=== PATIENT | male | born 1980 | race Caucasian/White ===

== ENCOUNTER 2017-10-24 01:08 | Inpatient (IN) ==
[2017-10-24 01:40] LABS: Basophils % 0.5 %; Eosinophils # 0.1 K/mcL (0.0-0.6); Eosinophils % 1.2 %; Hematocrit 49.1 % (37.5-50.1); Hemoglobin 17.5 g/dL (12.9-16.9); Immature Granulocytes % 0.3 % (0-4); Lymphocytes # 1.9 K/mcL (0.6-4.6); Lymphocytes % 31.2 %; Mean Corpuscular HGB Conc 35.6 g/dL (31.6-35.5); Mean Corpuscular Hemoglobin 31.8 pg (28.0-33.3); Mean Corpuscular Volume 89.3 fL (83.0-100.0); Mean Platelet Volume 8.8 fL (9.4-12.4); Monocytes # 0.5 K/mcL (0.0-1.3); Monocytes % 8.3 %; Neutrophils # 3.6 K/mcL (1.6-8.9); Platelet Count 234 K/mcL (140-400); Red Cell Distribution Width 13.1 % (11.5-14.5); Segmented Neutrophils % 58.5 %
[2017-10-24] MEDS ORDERED: Ipratropium/Albuterol Neb 3 ML IH ONE (01:41)
[2017-10-24] MEDS ORDERED: Dexamethasone 10 MG/ML VIAL IM ONE (01:42)
[2017-10-24] MEDS ORDERED: *HR* LORazepam 1 MG TABLET PO ONE (01:44)
--- NOTE | 2017-10-24 01:49 | Emergency Department Note ---
Disposition Clinical Impression: Acute psychosis, Suicidal ideation Disposition: Admitted As Inpatient Condition: Fair Forms: ED Satisfaction Letter Psych HPI - General Chief Complaint: ED Psychiatric Symptoms Stated Complaint: si/hi Time Seen by Provider: 10/24/17 01:41 Source: patient Mode of arrival: private vehicle Limitations: no limitations Nursing Notes Reviewed: Yes Vital Signs Reviewed: Yes - History of Present Illness Pt complaint: suicidal ideation, anxiety Onset (ago): day(s) Duration: constant, getting worse History of similar episodes: Yes Improves with: medication Worsens with: none Context: recent drug abuse (meth yesterday), not taking psychiatric medications , new medication(s) (Prednisone x a couple of days - for wheezing and rash) Alleged intoxication: No Associated Psychiatric Symptoms: suicidal ideation, homicidal ideation, racing thoughts, anxiety Associated symptoms: Reports: denies other symptoms Traumatic symptoms: denies traumatic injury Treatments prior to arrival: none Self harm or harm to others: admits thoughts of self harm, denies having a plan - Related Data Home Medications Medication Instructions Recorded Confirmed Buspirone HCl [Buspar] 10 mg PO TID 10/24/17 10/24/17 Sertraline [Zoloft] 25 mg PO DAILY 10/24/17 10/24/17 chlorproMAZINE [Thorazine] 10 mg PO TID 10/24/17 10/24/17 Previous Rx's Medication Instructions Recorded Amoxicillin 875 mg PO BID #20 tablet 04/15/17 GuaiFENesin/Dextromethorphan 5 ml PO Q6HR PRN #120 syrup 04/15/17 [Robitussin/DM] Loratadine/Pseudophed (12 HR) 1 each PO BID #20 tab.er.12h 04/15/17 [Claritin D (12HR)] Cyclobenzaprine [Flexeril] 10 mg PO TID PRN #20 tablet 10/21/17 predniSONE [PredniSONE] 40 mg PO DAILY 5 Days tablet 10/21/17 Allergies Allergy/AdvReac Type Severity Reaction Status Date / Time No Known Allergies Allergy Verified 10/21/17 10:19 All systems ED: reviewed and negative except as stated. Review of Systems: As Per HPI Constitutional: Denies: fever, chills, weakness, weight change, night sweats Eyes: Denies: vision change ENT ED: Reports: congestion. Denies: throat pain, dysphagia Cardiovascular: Denies: chest pain, palpitations, dyspnea on exertion, orthopnea , edema, syncope Respiratory: Reports: cough (x 1.5 weeks), wheezes. Denies: dyspnea, hemoptysis , stridor, sputum production Gastrointestinal: Denies: abdominal pain, nausea, vomiting Integumentary: Reports: rash (x 1 week, from exposure to fiberglass, seen here for it. Rx Prednisone) Neurological: Denies: headache, weakness, confusion, vertigo Psychiatric: Reports: as per HPI, anxiety, suicidal thoughts, homicidal thoughts. Denies: auditory hallucinations, visual hallucinations Hematological/Lymphatic: Denies: easy bleeding, easy bruising Past Medical History - Past Medical History Attestation: Yes The following information was validated with the patient. Source: patient Medical history: Reports: asthma, hepatitis Surgical history: Reports: non-contributory Psychiatric history: Reports: anxiety, bipolar, depression, prior suicide attempt, previous psychiatric hospitalization - Social History Smoking Status: Current every day smoker Smokeless Tobacco Status: No Alcohol use: Reports: occasionally Drug use: Reports: marijuana, methamphetamine Physical Exam - General Limitations: no limitations General appearance: alert, anxious - Head Head exam: atraumatic, normocephalic, normal inspection - Eye Eye exam: Present: normal appearance, PERRL. Absent: scleral icterus, conjunctival injection, periorbital swelling - ENT ENT exam: normal oropharynx, mucous membranes moist - Neck Neck exam: Present: normal inspection, full ROM, trachea midline. Absent: meningismus - Chest Chest inspection: Present: normal inspection - Respiratory Respiratory exam: Present: wheezes. Absent: normal lung sounds bilaterally, respiratory distress, stridor, accessory muscle use, prolonged expiratory phase - Expanded Respiratory Exam Location: wheezes: Left, Right, Upper, Lower - Cardiovascular Cardiovascular exam: Present: regular rate, normal rhythm, normal heart sounds - Extremities Exam Extremities exam: Present: full ROM, normal capillary refill. Absent: joint swelling - Neurological Exam Neurological exam: Present: alert, oriented X3, CN II-XII intact, normal gait - Psychiatric Psychiatric exam: Present: agitated, anxious, manic, homicidal ideation, suicidal ideation - Skin Skin exam: Present: warm, dry, intact, normal color, rash - Expanded Skin Exam Type of lesion: Present: rash Distribution: generalized Description: Present: erythematous, papular, confluent, other (blanching, excoriated). Absent: tenderness Course Course Narrative: Patient presents from home for evaluation of "suicidal because mind is racing and I don't want to hurt someone else." He has had problems like this in the past. He used to take psychiatric medications but has been off of them "for a while". He tried using some meth yesterday because when he begins to feels anxious, "that usually helps set the mind right". This time it did not work. He began to feel like he might hurt someone or himself so he decided to come here for help. He is polite and cooperative with the exam. Vitals are normal; including O2 sat, but he has diffuse wheezing - insp and exp. Rash is still present - also diffuse. Appears improved compared to a few days ago when I saw him. Labs have been ordered. Will order Duonebs and decadron as well. Patient is requesting "something to help with nerves and anxiety". Wheezing improved. O2sat is 100% on room air. Ativan "did not help", per patient. Haldol ordered. Labs are essentially normal except for drug screen which is positive for several substances. Patient has had a cough for about a week or so and has hx of asthma. He lost his inhaler. Sats are good and wheezing better after nebs. Cough is dry and infrquent. No fever, malaise or pain, I do not suspect pneumonia. Thus, he is medically cleared for psychiatric evaluation. [facility] has been contacted already by the nurse. Patient was evaluated By [facility] AMPARO Baker. She has consulted with the psychiatrist. Patient will be admitted to . Case discussed with Dr. Moreno. He has had face to face time with the patient and agrees with the assessment and plan. Vital Signs Temperature 97.7 F 10/24/17 01:13 Pulse Rate 81 10/24/17 01:13 Respiratory Rate 14 10/24/17 01:13 Blood Pressure 119/82 10/24/17 01:13 O2 Sat by Pulse Oximetry 96 10/24/17 01:13 Temperature 97.7 F 10/24/17 01:13 Pulse Rate 81 10/24/17 01:13 Respiratory Rate 16 10/24/17 01:45 Blood Pressure 119/82 10/24/17 01:13 O2 Sat by Pulse Oximetry 100 10/24/17 01:45 Oxygen Delivery Oxygen Delivery Room Air Psych - Lab Data Lab results reviewed: Yes I reviewed the patient's lab results. Lab results narrative: Laboratory Last Values WBC 6.1 K/mcL (4.3-11.1) 10/24/17 01:25 RBC 5.50 M/mcL (4.19-5.50) 10/24/17 01:25 Hgb 17.5 g/dL (12.9-16.9) H 10/24/17 01:25 Hct 49.1 % (37.5-50.1) 10/24/17 01:25 MCV 89.3 fL (83.0-100.0) 10/24/17 01:25 MCH 31.8 pg (28.0-33.3) 10/24/17 01:25 MCHC 35.6 g/dL (31.6-35.5) H 10/24/17 01:25 RDW 13.1 % (11.5-14.5) 10/24/17 01:25 Plt Count 234 K/mcL (140-400) 10/24/17 01:25 MPV 8.8 fL (9.4-12.4) L 10/24/17 01:25 Immature Gran % 0.3 % (0-4) 10/24/17 01:25 Seg Neutrophils % 58.5 % 10/24/17 01:25 Lymphocytes % 31.2 % 10/24/17 01:25 Monocytes % 8.3 % 10/24/17 01:25 Eosinophils % 1.2 % 10/24/17 01:25 Basophils % 0.5 % 10/24/17 01:25 Neutrophils # 3.6 K/mcL (1.6-8.9) 10/24/17 01:25 Lymphocytes # 1.9 K/mcL (0.6-4.6) 10/24/17 01:25 Monocytes # 0.5 K/mcL (0.0-1.3) 10/24/17 01:25 Eosinophils # 0.1 K/mcL (0.0-0.6) 10/24/17 01:25 Basophils # 0.0 K/mcL (0.0-0.2) 10/24/17 01:25 Sodium 133 mEq/L (136-145) L 10/24/17 01:25 Potassium 4.2 mEq/L (3.5-5.1) 10/24/17 01:25 Chloride 97 mEq/L (98-107) L 10/24/17 01:25 Carbon Dioxide 28 mEq/L (23-29) 10/24/17 01:25 BUN 14 mg/dL (6-20) 10/24/17 01:25 Creatinine 1.06 mg/dL (0.70-1.30) 10/24/17 01:25 Est GFR ( Amer) > 60 (> 60) 10/24/17 01:25 Est GFR (Non-Af Amer) > 60 (> 60) 10/24/17 01:25 BUN/Creatinine Ratio 13 (6-26) 10/24/17 01:25 Glucose 108 mg/dL (70-105) H 10/24/17 01:25 Calculated Osmolality 277 (280-300) L 10/24/17 01:25 Calcium 9.3 mg/dL (8.6-10.3) 10/24/17 01:25 Urine Color Yellow (Yellow) 10/24/17 02:19 Urine Clarity Clear (Clear) 10/24/17 02:19 Urine pH 6.0 pH Units (5.0-8.0) 10/24/17 02:19 Ur Specific [place] 1.021 (1.010-1.025) 10/24/17 02:19 Urine Protein Negative mg/dL (Neg-Trace) 10/24/17 02:19 Urine Glucose (UA) Normal mg/dL (Normal) 10/24/17 02:19 Urine Ketones Negative mg/dL (Negative) 10/24/17 02:19 Urine Blood Negative (Negative) 10/24/17 02:19 Urine Nitrite Negative (Negative) 10/24/17 02:19 Urine Bilirubin Negative (Negative) 10/24/17 02:19 Urine Urobilinogen Normal mg/dL (Normal) 10/24/17 02:19 Ur Leukocyte Esterase Negative (Negative) 10/24/17 02:19 Salicylates < 2.5 mg/dL (15.0-30.0) L 10/24/17 01:25 Urine Opiates Screen Negative ng/mL (Xqomiu=986) 10/24/17 02:19 Acetaminophen < 10 mcg/mL (10-20) L 10/24/17 01:25 Ur Barbiturates Screen Negative ng/mL (Otkvxs=983) 10/24/17 02:19 Ur Phencyclidine Scrn Negative ng/mL (Cutoff=25) 10/24/17 02:19 Ur Amphetamines Screen Positive ng/mL (Vjfflu=4909) H 10/24/17 02:19 U Benzodiazepines Scrn Negative ng/mL (Ujpyyt=926) 10/24/17 02:19 Urine Cocaine Screen Positive ng/mL (Cutoff= 300) H 10/24/17 02:19 U Marijuana (THC) Screen Positive ng/mL (Cutoff = 50) H 10/24/17 02:19 Ethyl Alcohol < 10 mg/dL (Less than 10) 10/24/17 01:25 Result diagrams: 10/24/17 01:25 10/24/17 01:25 Lab Results 10/24/17 10/24/17 10/24/17 Range/Units 01:25 01:25 02:19 WBC 6.1 (4.3-11.1) K/mcL RBC 5.50 (4.19-5.50) M/mcL Hgb 17.5 H (12.9-16.9) g/dL Hct 49.1 (37.5-50.1) % MCV 89.3 (83.0-100.0) fL MCH 31.8 (28.0-33.3) pg MCHC 35.6 H (31.6-35.5) g/dL RDW 13.1 (11.5-14.5) % Plt Count 234 (140-400) K/mcL MPV 8.8 L (9.4-12.4) fL Immature Gran % 0.3 (0-4) % Seg Neutrophils % 58.5 % Lymphocytes % 31.2 % Monocytes % 8.3 % Eosinophils % 1.2 % Basophils % 0.5 % Neutrophils # 3.6 (1.6-8.9) K/mcL Lymphocytes # 1.9 (0.6-4.6) K/mcL Monocytes # 0.5 (0.0-1.3) K/mcL Eosinophils # 0.1 (0.0-0.6) K/mcL Basophils # 0.0 (0.0-0.2) K/mcL Sodium 133 L (136-145) mEq/L Potassium 4.2 (3.5-5.1) mEq/L Chloride 97 L (98-107) mEq/L Carbon Dioxide 28 (23-29) mEq/L BUN 14 (6-20) mg/dL Creatinine 1.06 (0.70-1.30) mg/dL Est GFR ( Amer) > 60 (> 60) Est GFR (Non-Af Amer) > 60 (> 60) BUN/Creatinine Ratio 13 (6-26) Glucose 108 H (70-105) mg/dL Calculated Osmolality 277 L (280-300) Calcium 9.3 (8.6-10.3) mg/dL Urine Color (Yellow) Urine Clarity (Clear) Urine pH (5.0-8.0) pH Units Ur Specific [place] (1.010-1.025) Urine Protein (Neg-Trace) mg/dL Urine Glucose (UA) (Normal) mg/dL Urine Ketones (Negative) mg/dL Urine Blood (Negative) Urine Nitrite (Negative) Urine Bilirubin (Negative) Urine Urobilinogen (Normal) mg/dL Ur Leukocyte Esterase (Negative) Salicylates < 2.5 L (15.0-30.0) mg/dL Urine Opiates Screen Negative (Dauvyy=791) ng/mL Acetaminophen < 10 L (10-20) mcg/mL Ur Barbiturates Screen Negative (Ckkwhp=089) ng/mL Ur Phencyclidine Scrn Negative (Cutoff=25) ng/mL Ur Amphetamines Screen Positive H (Ppgtdu=2279) ng/mL U Benzodiazepines Scrn Negative (Vxmyow=444) ng/mL Urine Cocaine Screen Positive H (Cutoff= 300) ng/mL U Marijuana (THC) Screen Positive H (Cutoff = 50) ng/mL Ethyl Alcohol < 10 (Less than 10) mg/dL 10/24/17 Range/Units 02:19 WBC (4.3-11.1) K/mcL RBC (4.19-5.50) M/mcL Hgb (12.9-16.9) g/dL Hct (37.5-50.1) % MCV (83.0-100.0) fL MCH (28.0-33.3) pg MCHC (31.6-35.5) g/dL RDW (11.5-14.5) % Plt Count (140-400) K/mcL MPV (9.4-12.4) fL Immature Gran % (0-4) % Seg Neutrophils % % Lymphocytes % % Monocytes % % Eosinophils % % Basophils % % Neutrophils # (1.6-8.9) K/mcL Lymphocytes # (0.6-4.6) K/mcL Monocytes # (0.0-1.3) K/mcL Eosinophils # (0.0-0.6) K/mcL Basophils # (0.0-0.2) K/mcL Sodium (136-145) mEq/L Potassium (3.5-5.1) mEq/L Chloride (98-107) mEq/L Carbon Dioxide (23-29) mEq/L BUN (6-20) mg/dL Creatinine (0.70-1.30) mg/dL Est GFR ( Amer) (> 60) Est GFR (Non-Af Amer) (> 60) BUN/Creatinine Ratio (6-26) Glucose (70-105) mg/dL Calculated Osmolality (280-300) Calcium (8.6-10.3) mg/dL Urine Color Yellow (Yellow) Urine Clarity Clear (Clear) Urine pH 6.0 (5.0-8.0) pH Units Ur Specific [place] 1.021 (1.010-1.025) Urine Protein Negative (Neg-Trace) mg/dL Urine Glucose (UA) Normal (Normal) mg/dL Urine Ketones Negative (Negative) mg/dL Urine Blood Negative (Negative) Urine Nitrite Negative (Negative) Urine Bilirubin Negative (Negative) Urine Urobilinogen Normal (Normal) mg/dL Ur Leukocyte Esterase Negative (Negative) Salicylates (15.0-30.0) mg/dL Urine Opiates Screen (Mqvktv=015) ng/mL Acetaminophen (10-20) mcg/mL Ur Barbiturates Screen (Vuyzmw=903) ng/mL Ur Phencyclidine Scrn (Cutoff=25) ng/mL Ur Amphetamines Screen (Tjcjlx=7205) ng/mL U Benzodiazepines Scrn (Sseipn=242) ng/mL Urine Cocaine Screen (Cutoff= 300) ng/mL U Marijuana (THC) Screen (Cutoff = 50) ng/mL Ethyl Alcohol (Less than 10) mg/dL Psychiatric Medical Clearance - Medical Clearance Checklist Does the patient have a NEW psychiatric condition?: No Any abnormalities indicating possible medical illness?: No Any history of medical issues?: Yes Medical History: Closed head injury (Acute) Cervical muscle strain (Acute) Contact dermatitis (Acute) Bronchitis (Acute) Depression (Inactive) Sinusitis (Inactive) Suicidal ideation (Inactive) Tobacco use (Inactive) Upper respiratory infection (Inactive) No Social History Section defined Any abnormal vital signs prior to transfer?: No Current Vitals: Last Vital Signs Temp 97.7 F 10/24/17 01:13 Pulse 81 10/24/17 01:13 Resp 16 10/24/17 01:45 BP 119/82 10/24/17 01:13 Pulse Ox 100 10/24/17 01:45 Is the patient intoxicated or cognitively impaired?: No Psychiatric Lab Panel: Drug Levels and Toxicity 10/24/17 10/24/17 01:25 02:19 Urine Opiates Screen Negative Acetaminophen < 10 L Ur Barbiturates Screen Negative Ur Phencyclidine Scrn Negative Ur Amphetamines Screen Positive H U Benzodiazepines Scrn Negative Urine Cocaine Screen Positive H U Marijuana (THC) Screen Positive H Ethyl Alcohol < 10 Any abnormalities on the physical exam?: Yes (Rash, wheezing - improved) Any abnormal labs?: Yes Abnormal Labs: Abnormal lab results Hgb 17.5 g/dL (12.9-16.9) H 10/24/17 01:25 MCHC 35.6 g/dL (31.6-35.5) H 10/24/17 01:25 MPV 8.8 fL (9.4-12.4) L 10/24/17 01:25 Sodium 133 mEq/L (136-145) L 10/24/17 01:25 Chloride 97 mEq/L (98-107) L 10/24/17 01:25 Glucose 108 mg/dL (70-105) H 10/24/17 01:25 Calculated Osmolality 277 (280-300) L 10/24/17 01:25 Salicylates < 2.5 mg/dL (15.0-30.0) L 10/24/17 01:25 Acetaminophen < 10 mcg/mL (10-20) L 10/24/17 01:25 Ur Amphetamines Screen Positive ng/mL (Foqnik=6538) H 10/24/17 02:19 Urine Cocaine Screen Positive ng/mL (Cutoff= 300) H 10/24/17 02:19 U Marijuana (THC) Screen Positive ng/mL (Cutoff = 50) H 10/24/17 02:19 If abnormals exist; proposed resolution:: time Does the patient require durable medical equiptment?: No Is the patient ambulatory?: Yes Is the patient a fall risk?: No Has the patient been medically cleared?: Yes Any acute medical condition require Tx prior to transfer?: Yes (fani Smallwood) Statement of Medical Clearance: I have evaluated the patient, reviewed diagnostic information, and certify that the patient's medical condition is sufficiently stable that transfer to the psychiatric unit does not pose a significant risk of deterioration.
[2017-10-24 01:57] LABS: Acetaminophen < 10 mcg/mL (10-20)
[2017-10-24 01:59] LABS: BUN/Creatinine Ratio 13 (6-26); Blood Urea Nitrogen 14 mg/dL (6-20); Calcium 9.3 mg/dL (8.6-10.3); Carbon Dioxide 28 mEq/L (23-29); Chloride 97 mEq/L (98-107); Ethanol < 10 mg/dL (Less than 10); Glucose 108 mg/dL (70-105); Osmolality,Calculated 277 (280-300); Potassium 4.2 mEq/L (3.5-5.1); Salicylate < 2.5 mg/dL (15.0-30.0); Sodium 133 mEq/L (136-145); eGFR For African Americans > 60 (> 60); eGFR For Non-African Americans > 60 (> 60)
[2017-10-24 02:26] LABS: Bilirubin,Urine Negative (Negative); Blood,Urine Negative (Negative); Clarity,Urine Clear (Clear); Color,Urine Yellow (Yellow); Glucose,Urine (UA) Normal (Normal); Ketones,Urine Negative (Negative); Leukocyte Esterase,Urine Negative (Negative); Nitrite,Urine Negative (Negative); Protein,Urine Negative (Neg-Trace); Specific Gravity,Urine 1.021 (1.010-1.025); Urobilinogen,Urine Normal (Normal)
[2017-10-24] MEDS ORDERED: Haloperidol Lactate 5 MG/ML VIAL IM ONE (02:37)
[2017-10-24 02:50] LABS: Amphetamine Screen,Urine Positive ng/mL (Cutoff=1000); Barbiturate Screen,Urine Negative ng/mL (Cutoff=200); Benzodiazepines Screen,Urine Negative ng/mL (Cutoff=200); Cannabinoid Screen,Urine Positive ng/mL (Cutoff = 50); Cocaine Screen,Urine Positive ng/mL (Cutoff= 300); Opiate Screen,Urine Negative ng/mL (Cutoff=300); Phencyclidine Screen,Urine Negative ng/mL (Cutoff=25)
--- NOTE | 2017-10-24 04:15 | Emergency Department Note ---
Disposition Clinical Impression: Acute psychosis, Suicidal ideation Disposition: Admitted As Inpatient Condition: Fair General Adult HPI - General Chief complaint: ED Psychiatric Symptoms Stated complaint: si/hi Time Seen by Provider: 10/24/17 01:41 Source: patient Mode of arrival: private vehicle Limitations: no limitations Nursing Notes Reviewed: Yes Vital Signs Reviewed: Yes - History of Present Illness Pain Scale: 0 - Related Data Home Medications Medication Instructions Recorded Confirmed Buspirone HCl [Buspar] 10 mg PO TID 10/24/17 10/24/17 Sertraline [Zoloft] 25 mg PO DAILY 10/24/17 10/24/17 chlorproMAZINE [Thorazine] 10 mg PO TID 10/24/17 10/24/17 Previous Rx's Medication Instructions Recorded Amoxicillin 875 mg PO BID #20 tablet 04/15/17 GuaiFENesin/Dextromethorphan 5 ml PO Q6HR PRN #120 syrup 04/15/17 [Robitussin/DM] Loratadine/Pseudophed (12 HR) 1 each PO BID #20 tab.er.12h 04/15/17 [Claritin D (12HR)] Cyclobenzaprine [Flexeril] 10 mg PO TID PRN #20 tablet 10/21/17 predniSONE [PredniSONE] 40 mg PO DAILY 5 Days tablet 10/21/17 Allergies Allergy/AdvReac Type Severity Reaction Status Date / Time No Known Allergies Allergy Verified 10/21/17 10:19 Constitutional: Denies: fever, chills, weakness, weight change, night sweats Eyes: Denies: vision change ENT ED: Reports: congestion. Denies: throat pain, dysphagia Cardiovascular: Denies: chest pain, palpitations, dyspnea on exertion, orthopnea , edema, syncope Respiratory: Reports: cough (x 1.5 weeks), wheezes. Denies: dyspnea, hemoptysis , stridor, sputum production Gastrointestinal: Denies: abdominal pain, nausea, vomiting Integumentary: Reports: rash (x 1 week, from exposure to fiberglass, seen here for it. Rx Prednisone) Neurological: Denies: headache, weakness, confusion, vertigo Psychiatric: Reports: as per HPI, anxiety, suicidal thoughts, homicidal thoughts. Denies: auditory hallucinations, visual hallucinations Hematological/Lymphatic: Denies: easy bleeding, easy bruising Past Medical History - Past Medical History Medical history: Reports: asthma, hepatitis Surgical history: Reports: non-contributory Psychiatric history: Reports: anxiety, bipolar, depression, prior suicide attempt, previous psychiatric hospitalization - Social History Smoking Status: Current every day smoker Smokeless Tobacco Status: No Alcohol use: Reports: occasionally Drug use: Reports: marijuana, methamphetamine Physical Exam - General Limitations: no limitations General appearance: alert, anxious Course Vital Signs Temperature 97.7 F 10/24/17 01:13 Pulse Rate 81 10/24/17 01:13 Respiratory Rate 14 10/24/17 01:13 Blood Pressure 119/82 10/24/17 01:13 O2 Sat by Pulse Oximetry 96 10/24/17 01:13 Temperature 97.7 F 10/24/17 01:13 Pulse Rate 81 10/24/17 01:13 Respiratory Rate 16 10/24/17 01:45 Blood Pressure 119/82 10/24/17 01:13 O2 Sat by Pulse Oximetry 100 10/24/17 01:45 Oxygen Delivery Oxygen Delivery Room Air Medical Decision Making - Lab Data Result diagrams: 10/24/17 01:25 10/24/17 01:25 Lab Results 10/24/17 10/24/17 10/24/17 Range/Units 01:25 01:25 02:19 WBC 6.1 (4.3-11.1) K/mcL RBC 5.50 (4.19-5.50) M/mcL Hgb 17.5 H (12.9-16.9) g/dL Hct 49.1 (37.5-50.1) % MCV 89.3 (83.0-100.0) fL MCH 31.8 (28.0-33.3) pg MCHC 35.6 H (31.6-35.5) g/dL RDW 13.1 (11.5-14.5) % Plt Count 234 (140-400) K/mcL MPV 8.8 L (9.4-12.4) fL Immature Gran % 0.3 (0-4) % Seg Neutrophils % 58.5 % Lymphocytes % 31.2 % Monocytes % 8.3 % Eosinophils % 1.2 % Basophils % 0.5 % Neutrophils # 3.6 (1.6-8.9) K/mcL Lymphocytes # 1.9 (0.6-4.6) K/mcL Monocytes # 0.5 (0.0-1.3) K/mcL Eosinophils # 0.1 (0.0-0.6) K/mcL Basophils # 0.0 (0.0-0.2) K/mcL Sodium 133 L (136-145) mEq/L Potassium 4.2 (3.5-5.1) mEq/L Chloride 97 L (98-107) mEq/L Carbon Dioxide 28 (23-29) mEq/L BUN 14 (6-20) mg/dL Creatinine 1.06 (0.70-1.30) mg/dL Est GFR ( Amer) > 60 (> 60) Est GFR (Non-Af Amer) > 60 (> 60) BUN/Creatinine Ratio 13 (6-26) Glucose 108 H (70-105) mg/dL Calculated Osmolality 277 L (280-300) Calcium 9.3 (8.6-10.3) mg/dL Urine Color (Yellow) Urine Clarity (Clear) Urine pH (5.0-8.0) pH Units Ur Specific [place] (1.010-1.025) Urine Protein (Neg-Trace) mg/dL Urine Glucose (UA) (Normal) mg/dL Urine Ketones (Negative) mg/dL Urine Blood (Negative) Urine Nitrite (Negative) Urine Bilirubin (Negative) Urine Urobilinogen (Normal) mg/dL Ur Leukocyte Esterase (Negative) Salicylates < 2.5 L (15.0-30.0) mg/dL Urine Opiates Screen Negative (Ucpaur=824) ng/mL Acetaminophen < 10 L (10-20) mcg/mL Ur Barbiturates Screen Negative (Fpldgb=121) ng/mL Ur Phencyclidine Scrn Negative (Cutoff=25) ng/mL Ur Amphetamines Screen Positive H (Txrbhn=9981) ng/mL U Benzodiazepines Scrn Negative (Ejxahh=408) ng/mL Urine Cocaine Screen Positive H (Cutoff= 300) ng/mL U Marijuana (THC) Screen Positive H (Cutoff = 50) ng/mL Ethyl Alcohol < 10 (Less than 10) mg/dL 10/24/17 Range/Units 02:19 WBC (4.3-11.1) K/mcL RBC (4.19-5.50) M/mcL Hgb (12.9-16.9) g/dL Hct (37.5-50.1) % MCV (83.0-100.0) fL MCH (28.0-33.3) pg MCHC (31.6-35.5) g/dL RDW (11.5-14.5) % Plt Count (140-400) K/mcL MPV (9.4-12.4) fL Immature Gran % (0-4) % Seg Neutrophils % % Lymphocytes % % Monocytes % % Eosinophils % % Basophils % % Neutrophils # (1.6-8.9) K/mcL Lymphocytes # (0.6-4.6) K/mcL Monocytes # (0.0-1.3) K/mcL Eosinophils # (0.0-0.6) K/mcL Basophils # (0.0-0.2) K/mcL Sodium (136-145) mEq/L Potassium (3.5-5.1) mEq/L Chloride (98-107) mEq/L Carbon Dioxide (23-29) mEq/L BUN (6-20) mg/dL Creatinine (0.70-1.30) mg/dL Est GFR ( Amer) (> 60) Est GFR (Non-Af Amer) (> 60) BUN/Creatinine Ratio (6-26) Glucose (70-105) mg/dL Calculated Osmolality (280-300) Calcium (8.6-10.3) mg/dL Urine Color Yellow (Yellow) Urine Clarity Clear (Clear) Urine pH 6.0 (5.0-8.0) pH Units Ur Specific [place] 1.021 (1.010-1.025) Urine Protein Negative (Neg-Trace) mg/dL Urine Glucose (UA) Normal (Normal) mg/dL Urine Ketones Negative (Negative) mg/dL Urine Blood Negative (Negative) Urine Nitrite Negative (Negative) Urine Bilirubin Negative (Negative) Urine Urobilinogen Normal (Normal) mg/dL Ur Leukocyte Esterase Negative (Negative) Salicylates (15.0-30.0) mg/dL Urine Opiates Screen (Oyylkv=224) ng/mL Acetaminophen (10-20) mcg/mL Ur Barbiturates Screen (Guevcl=638) ng/mL Ur Phencyclidine Scrn (Cutoff=25) ng/mL Ur Amphetamines Screen (Ngcezd=3255) ng/mL U Benzodiazepines Scrn (Wgrwab=805) ng/mL Urine Cocaine Screen (Cutoff= 300) ng/mL U Marijuana (THC) Screen (Cutoff = 50) ng/mL Ethyl Alcohol (Less than 10) mg/dL Attestation Statement - Attestation Attestation: I, Ranjan Moreno MD, personally evaluated this patient and discussed their management with the resident physician. I reviewed the resident's note and agree with the documented findings, medical decision making, and plan of care. 37-year-old male with history of psychiatric problems presents to the emergency department complaining of suicidal and homicidal ideations. He admits to substance abuse. Requesting help because he does not want to hurt himself. On examination patient is a well-developed well-nourished well-appearing male in no acute distress. He is alert and oriented 3. There is no cyanosis or diaphoresis. Multiple tattoos. Breath sounds are clear and equal bilaterally. Heart regular rate and rhythm. Abdomen soft and nontender with normal bowel sounds. No gross focal neurological deficits. Labs reviewed. Tox screen positive for amphetamines, cocaine, and marijuana. Patient medically cleared and the [address] psychiatry department was consulted to evaluate patient in the emergency department. After evaluation patient is being admitted to the [address] psychiatric unit.
[2017-10-24] MEDS ORDERED: *HR* LORazepam 1 MG TABLET PO PRN (04:21)
[2017-10-24] MEDS ORDERED: *HR* LORazepam 2 MG/ML VIAL IM PRN (04:21)
[2017-10-24] MEDS ORDERED: Mag Hydrox/Al Hydrox/Simeth 30 ML UDC PO PRN (04:21)
[2017-10-24] MEDS ORDERED: Haloperidol Lactate 5 MG/ML VIAL IM PRN (04:21)
[2017-10-24] MEDS ORDERED: MOM Conc 10 ML UD.LIQ PO PRN (04:21)
[2017-10-24] MEDS: Nicotine 21 MG PATCH.TD24 TD SCH (09:04)
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
[2017-10-24] MEDS: chlorproMAZINE 25 MG TABLET PO SCH ×2 (16:36→22:11)
[2017-10-24] MEDS: hydrOXYzine pamoate 25 MG CAPSULE PO PRN (22:11)
[2017-10-24] MEDS: Ibuprofen 400 MG TABLET PO PRN (22:11)
[2017-10-25] MEDS: Nicotine 21 MG PATCH.TD24 TD SCH (08:17)
[2017-10-25] MEDS: chlorproMAZINE 25 MG TABLET PO SCH ×3 (08:17→20:56)
--- NOTE | 2017-10-25 12:35 | Psychiatry Progress Note ---
Date of Encounter: 10/25/17 Time of Encounter: 12:15 Subjective Interval history: Patient seen today.cased/w staff. Patient started on his medications as he had stopped them as ran out . he states they helped him states slept 8.5 hours and feels little better. states he had rash in back , feels it is started again , it happens as he had before and uses antiitch cream , benadryl given bid. no side effects remains depress and suicidal thoughts are better and denies homicidal thoughts. Review of Systems Psychiatric: Reports: depression, anxiety, suicidal ideation, homicidal ideation , hopelessness, irritability, mood swings Results - Vital Signs Vital Signs: Temp Pulse Resp BP Pulse Ox 97.4 F L 70 16 110/75 100 10/25/17 08:44 10/25/17 08:44 10/25/17 08:44 10/25/17 08:44 10/24/17 01:45 Assessment and Plan (1) Homicidal ideation Current visit: Yes Status: Acute Plan: Continue hospitalization, Close observation, Suicide Precautions per unit protocol, Encourage participation in unit milieu, Group Therapy, Monitor sleep, Monitor appetite Risks, benefits, side effects, alternatives discussed w/pt: Yes Patient agreeable to treatment: Yes (2) Suicidal ideation Current visit: Yes Status: Acute Plan: Continue hospitalization, Close observation, Suicide Precautions per unit protocol, Encourage participation in unit milieu, Group Therapy, Monitor sleep, Monitor appetite, Family/Supportive other meeting Risks, benefits, side effects, alternatives discussed w/pt: Yes Patient agreeable to treatment: Yes (3) Bipolar affective disorder Current visit: Yes Status: Acute Plan: Continue hospitalization, Close observation, Suicide Precautions per unit protocol, Encourage participation in unit milieu, Group Therapy, Monitor sleep, Monitor appetite, Family/Supportive other meeting Risks, benefits, side effects, alternatives discussed w/pt: Yes Patient agreeable to treatment: Yes Qualifiers: Active/Remission status: currently active Current bipolar episode type: manic Current episode severity: severe Psychotic features: with psychotic features Qualified Code(s): F31.2 - Bipolar disorder, current episode manic severe with psychotic features (4) Amphetamine abuse Current visit: Yes Status: Acute Plan: Continue hospitalization, Suicide Precautions per unit protocol, Encourage participation in unit milieu Risks, benefits, side effects, alternatives discussed w/pt: Yes Patient agreeable to treatment: Yes (5) Cannabis abuse Current visit: Yes Status: Acute Risks, benefits, side effects, alternatives discussed w/pt: Yes Patient agreeable to treatment: Yes Consult Discharge Plan - Plan Referrals: Greeleyleela Carmichael [facility] [Outside] - 11/10/17 1:00 pm (The above appointment is with Alessandra Rdz. When you come to your first appointment, you will be completing paperwork, meeting with a counselor, and developing a treatment plan. You will receive follow- up appointments for on-going services, which could include community support, mental health and substance abuse counseling, groups/partial hospitalization programming and medication assisted treatment. Please note, you will receive a new patient packet in the mail. Please complete that to the best of your ability and bring it with you to your first appointment. You will also need to bring the following to your first appointment as well: 1) proof of household income (two consecutive pay stubs, social security award letter, bank statement, statement letter from [facility], child support statement, IRS 1040 or W2 form, or a statement from the person who financially supports you stating they help provide for your basic needs), 2 ) proof of residency (drivers license, a piece of mail showing your address, a statement from person you live with verifying you live at their address), 3) your social security card, 4) photo ID, 5) your insurance card (if you have commercial insurance you must call to obtain a prior authorization number before you arrive to your first appointment) and 6) if you do not have insurance but have applied for Medicaid, please bring verification you have applied. The above appointment(s) reflects first availability. You may contact the office regularly to check for cancellations that may allow you to be seen sooner.) Raegan Ceron [Advanced Practice Nurse] - Psychiatry Exam - Constitutional Vitals: Temp Pulse Resp BP Pulse Ox 97.4 F L 70 16 110/75 100 10/25/17 08:44 10/25/17 08:44 10/25/17 08:44 10/25/17 08:44 10/24/17 01:45 General appearance: age & developmentally appropriate, well-groomed, well- nourished - Musculoskeletal Gait: normal Station: relaxed Strength & Tone: normal for patient - Psychiatric Patient Orientation: Yes Person, Yes Time, Yes Place Level of alertness: Alert Behavior: anxious, restless Psychomotor activity: Increased Eye Contact: Maintains Eye Contact Mood Description: Depressed, Anxious, Irritable Affect description: congruent with mood Speech Volume: Normal Speech pattern: clear, coherent Language & Vocabulary: consistent with education Thought Process: Circumstantial Thought Content: Yes Suicidal ideation, Yes Paranoid delusion Perceptual Disturbances: No Auditory hallucinations, No Visual hallucinations Attention Span Ability: Capable of Focused Attention Memory Description: Grossly Intact Patient Reliability: Reliable Historian Fund of knowledge: Yes abstraction ability, Yes aware of current events Intelligence Estimate: Average Judgment: Limited Insight: Minimal
[2017-10-25] MEDS: hydrOXYzine pamoate 25 MG CAPSULE PO PRN ×3 (13:18→20:56)
[2017-10-25] MEDS: DiphenhydraMINE CREAM 28.4 GM TUBE TP PRN (17:13)
[2017-10-25] MEDS: Ibuprofen 400 MG TABLET PO PRN (20:56)
[2017-10-26] MEDS: Nicotine 21 MG PATCH.TD24 TD SCH (08:25)
[2017-10-26] MEDS: chlorproMAZINE 25 MG TABLET PO SCH ×2 (08:26→20:21)
[2017-10-26] MEDS: DiphenhydraMINE CREAM 28.4 GM TUBE TP PRN (09:04)
--- NOTE | 2017-10-26 11:32 | Psychiatry Progress Note ---
Date of Encounter: 10/26/17 Time of Encounter: 11:00 Subjective Interval history: Pateint seen today , case d/w staff, he slept well and feels zoloft not helping feeling depress and wants to change afternoon dose of thorazine as he forgets to take at home and it makes him drowsy , he also is c/o rash and examined his back is red , is itching and benadryl cream given not helping, states he had this for 1-2 weeks now and doctor gave him prednisone , he only tok for 1 day then came here. He denies eing from medication as on these medications for a while and rash appeared after he was off meds for 2-3 weeks. will get consult Review of Systems Psychiatric: Reports: depression, anxiety, suicidal ideation, homicidal ideation , hopelessness, irritability, mood swings Results - Vital Signs Vital Signs: Temp Pulse Resp BP Pulse Ox 97.7 F 67 16 119/60 100 10/25/17 21:00 10/26/17 09:00 10/26/17 09:00 10/26/17 09:00 10/24/17 01:45 Assessment and Plan (1) Homicidal ideation Current visit: Yes Status: Resolved Risks, benefits, side effects, alternatives discussed w/pt: Yes Patient agreeable to treatment: Yes (2) Suicidal ideation Current visit: Yes Status: Acute Plan: Continue hospitalization, Close observation, Suicide Precautions per unit protocol, Encourage participation in unit milieu, Group Therapy, Monitor sleep, Monitor appetite, Family/Supportive other meeting Risks, benefits, side effects, alternatives discussed w/pt: Yes Patient agreeable to treatment: Yes (3) Bipolar affective disorder Current visit: Yes Status: Acute Risks, benefits, side effects, alternatives discussed w/pt: Yes Patient agreeable to treatment: Yes Qualifiers: Active/Remission status: currently active Current bipolar episode type: manic Current episode severity: severe Psychotic features: with psychotic features Qualified Code(s): F31.2 - Bipolar disorder, current episode manic severe with psychotic features (4) Amphetamine abuse Current visit: Yes Status: Acute Risks, benefits, side effects, alternatives discussed w/pt: Yes Patient agreeable to treatment: Yes (5) Cannabis abuse Current visit: Yes Status: Acute Risks, benefits, side effects, alternatives discussed w/pt: Yes Patient agreeable to treatment: Yes Consult Discharge Plan - Plan Referrals: [place] Cleona [facility] [Outside] - 11/10/17 1:00 pm (The above appointment is with Alessandra Rdz. When you come to your first appointment, you will be completing paperwork, meeting with a counselor, and developing a treatment plan. You will receive follow- up appointments for on-going services, which could include community support, mental health and substance abuse counseling, groups/partial hospitalization programming and medication assisted treatment. Please note, you will receive a new patient packet in the mail. Please complete that to the best of your ability and bring it with you to your first appointment. You will also need to bring the following to your first appointment as well: 1) proof of household income (two consecutive pay stubs, social security award letter, bank statement, statement letter from [facility], child support statement, IRS 1040 or W2 form, or a statement from the person who financially supports you stating they help provide for your basic needs), 2 ) proof of residency (drivers license, a piece of mail showing your address, a statement from person you live with verifying you live at their address), 3) your social security card, 4) photo ID, 5) your insurance card (if you have commercial insurance you must call to obtain a prior authorization number before you arrive to your first appointment) and 6) if you do not have insurance but have applied for Medicaid, please bring verification you have applied. The above appointment(s) reflects first availability. You may contact the office regularly to check for cancellations that may allow you to be seen sooner.) Raegan Ceron [Advanced Practice Nurse] - Psychiatry Exam - Constitutional Vitals: Temp Pulse Resp BP Pulse Ox 97.7 F 67 16 119/60 100 10/25/17 21:00 10/26/17 09:00 10/26/17 09:00 10/26/17 09:00 10/24/17 01:45 General appearance: age & developmentally appropriate, well-groomed, well- nourished - Musculoskeletal Gait: normal Station: relaxed Strength & Tone: normal for patient - Psychiatric Patient Orientation: Yes Person, Yes Time, Yes Place Level of alertness: Alert Behavior: calm, cooperative Psychomotor activity: Slowed Eye Contact: Maintains Eye Contact Mood Description: Depressed, Anxious Affect description: congruent with mood Speech Volume: Normal Speech pattern: normal rate, normal rhythm, normal tone, fluent, spontaneous Language & Vocabulary: consistent with education Thought Process: Racing Thought Content: Yes Guilt Perceptual Disturbances: No Auditory hallucinations, No Visual hallucinations Attention Span Ability: Capable of Focused Attention Memory Description: Grossly Intact Patient Reliability: Reliable Historian Fund of knowledge: Yes abstraction ability, Yes aware of current events Intelligence Estimate: Average Judgment: Limited Insight: Partial
--- NOTE | 2017-10-26 13:11 | Internal Med History&Physical ---
Date of Encounter: 10/26/17 Time of Encounter: 13:04 Internal Medicine - H&P: HPI Chief complaint: rash Admitted From: Home Plans for Post Hospital Care: Home History of present illness: Mr. Padilla is a 37 year old male history of depression anxiety suicide idea, hepatitis C, [facility] for this depression suicidal. We are consulted for his rash. Patient reported that he developed rashes after he did ai a week ago. Rashes located to the to his whole back and bilateral arms. PE diffuse macular papular rashes , located to his whole back, itching and burning. Benadryl cream helps some ithlching, but not getting any better.. He denies any new medications. He wears pants during ai, but no top, there is no rash to the lower extremity. Most likely contact dermatitis. We will give oral steroids and the steroids cream. Past Med Surg Social Fam HX - Past Medical History Medical history: asthma, hepatitis Psychiatric history: anxiety, bipolar, depression, prior suicide attempt, previous psychiatric hospitalization - Past Surgical History Surgical History: no surgical history, non-contributory - Social History Smoking Status: Current every day smoker Packs per day: 1.5 Smokeless Tobacco Status: No Alcohol use: occasionally Drug use: marijuana, methamphetamine Internal Medicine - H&P: Meds Buspirone HCl [Buspar] 10 mg PO TID 10/24/17 [History] Chlorpromazine HCl 50 mg PO TID 10/24/17 [History] Sertraline [Zoloft] 25 mg PO DAILY 10/24/17 [History] 3 Allergy/AdvReac Type Severity Reaction Status Date / Time No Known Allergies Allergy Verified 10/21/17 10:19 All Systems PM: A 10-system review of systems was performed and is negative for pertinent findings except as documented above in the HPI. - Constitutional Vitals: Temp Pulse Resp BP Pulse Ox 97.7 F 67 16 119/60 100 10/25/17 21:00 10/26/17 09:00 10/26/17 09:00 10/26/17 09:00 10/24/17 01:45 General appearance: Present: A&O X 3, pleasant Exam: CONSTITUTIONAL: Patient appears as an age appropriate [default value] well developed, in no acute distress. EYES Clear sclerae, bilateral pupils are equal, reactive to light and accommodation. Extraocular movements are intact RESPIRATORY: No accessory muscle use, bilateral clear to auscultation, no wheezing, no crackles/rales. CARDIOVASCULAR: Regular heart rate, normal S1 and S2, no murmurs GASTROINTESTINAL: bowel sounds present, soft, no tenderness. No hepatosplenomegaly. No bilateral CVA tenderness MUSCULOSKELETAL: Joints in normal range of motion, no clubbing, no edema, no cyanosis. Bilateral peripheral pulses 2+ LYMPHATIC no lymphadenopathy in neck, groin and axilla bilaterally, no thyromegaly. NEUROLOGIC: CN II to XII are grossly intact, no focal neurological deficit. Deep tendon reflexes 2+ bilaterally. Normal light touch sensation to upper and lower extremity PSYCHIATRIC: Oriented x3, with good insight, mood is euthymic. No hallucinations or delusions. SKIN: Skin rashes to the bacl and b/l upper ext. warm and dry, no rashes, no open wound. Internal Med - H&P Results - Labs CBC & Chem 7: 10/24/17 01:25 10/24/17 01:25 - VTE Reasons for not Prescribing Prophylaxis: Treatment not Indicated - Low risk for VTE - Assessment and plan (1) Rash Current Visit: Yes Status: Acute Assessment and plan: Possible contact dermatitis, will give her oral steroids and the steroids and cream. - Time Spent With Patient Total time spent is greater than 50% in coordination of care (as documented) at patient's floor/unit and/or counseling patient: 25 - 35 minutes
[2017-10-26] MEDS: predniSONE 20 MG TABLET PO SCH (13:45)
[2017-10-26] MEDS: hydrOXYzine pamoate 25 MG CAPSULE PO PRN (20:23)
[2017-10-27 08:48] LABS: Albumin 4.1 g/dL (3.5-5.7); Albumin/Globulin Ratio 1.2 (1.1-2.2); Bilirubin,Direct 0.1 mg/dL (0.0-0.2); Bilirubin,Indirect 0.3 mg/dL (0.0-1.2); Bilirubin,Total 0.4 mg/dL (0.3-1.0); Globulin 3.4 g/dL (2.4-3.5); Total Protein 7.5 g/dL (6.4-8.9)
[2017-10-27] MEDS: predniSONE 20 MG TABLET PO SCH (09:10)
[2017-10-27] MEDS: chlorproMAZINE 25 MG TABLET PO SCH ×2 (09:10→20:52)
[2017-10-27] MEDS: Nicotine 21 MG PATCH.TD24 TD SCH (09:13)
--- NOTE | 2017-10-27 12:07 | Psychiatry Progress Note ---
Date of Encounter: 10/27/17 Time of Encounter: 11:50 Subjective Interval history: Patient seen today case d/w treatment team , patient is interacting , no suicidal thoughts but has verbalized that people who hurt him would , i was wishing him and it was gone by this morning as per him , he denies any thoughts of hurting them. he is showing improvement , states he slept well denies side effects. he is not suicidal/homicidal today and psychosis better. Appreciate medicine consult for his rash , which is improving and has shrunken on examination , on oral and topical steroids HIs LFT were wnl. Review of Systems Psychiatric: Reports: depression, anxiety, suicidal ideation, homicidal ideation , hopelessness, irritability, mood swings Results - Vital Signs Vital Signs: Temp Pulse Resp BP Pulse Ox 97.4 F L 88 18 119/81 100 10/27/17 09:00 10/27/17 09:00 10/27/17 09:00 10/27/17 09:00 10/24/17 01:45 - Labs Labs: Laboratory Results - last 24 hr 10/27/17 08:09 Total Bilirubin 0.4 Direct Bilirubin 0.1 Indirect Bilirubin 0.3 AST 21 ALT 33 Alkaline Phosphatase 54 Serum Total Protein 7.5 Albumin 4.1 Globulin 3.4 Albumin/Globulin Ratio 1.2 Assessment and Plan (1) Bipolar affective disorder Current visit: Yes Status: Acute Plan: Continue hospitalization, Close observation, Suicide Precautions per unit protocol, Encourage participation in unit milieu, Group Therapy, Monitor sleep, Monitor appetite, Family/Supportive other meeting Risks, benefits, side effects, alternatives discussed w/pt: Yes Patient agreeable to treatment: Yes Qualifiers: Active/Remission status: currently active Current bipolar episode type: manic Current episode severity: severe Psychotic features: with psychotic features Qualified Code(s): F31.2 - Bipolar disorder, current episode manic severe with psychotic features (2) Homicidal ideation Current visit: Yes Status: Resolved Risks, benefits, side effects, alternatives discussed w/pt: Yes Patient agreeable to treatment: Yes (3) Suicidal ideation Current visit: Yes Status: Acute Risks, benefits, side effects, alternatives discussed w/pt: Yes Patient agreeable to treatment: Yes (4) Amphetamine abuse Current visit: Yes Status: Acute Risks, benefits, side effects, alternatives discussed w/pt: Yes Patient agreeable to treatment: Yes (5) Cannabis abuse Current visit: Yes Status: Acute Risks, benefits, side effects, alternatives discussed w/pt: Yes Patient agreeable to treatment: Yes Consult Discharge Plan - Plan Referrals: [facility] [Outside] - 11/10/17 1:00 pm (The above appointment is with Alessandra Rdz. When you come to your first appointment, you will be completing paperwork, meeting with a counselor, and developing a treatment plan. You will receive follow- up appointments for on-going services, which could include community support, mental health and substance abuse counseling, groups/partial hospitalization programming and medication assisted treatment. Please note, you will receive a new patient packet in the mail. Please complete that to the best of your ability and bring it with you to your first appointment. You will also need to bring the following to your first appointment as well: 1) proof of household income (two consecutive pay stubs, social security award letter, bank statement, statement letter from [facility], child support statement, IRS 1040 or W2 form, or a statement from the person who financially supports you stating they help provide for your basic needs), 2 ) proof of residency (drivers license, a piece of mail showing your address, a statement from person you live with verifying you live at their address), 3) your social security card, 4) photo ID, 5) your insurance card (if you have commercial insurance you must call to obtain a prior authorization number before you arrive to your first appointment) and 6) if you do not have insurance but have applied for Medicaid, please bring verification you have applied. The above appointment(s) reflects first availability. You may contact the office regularly to check for cancellations that may allow you to be seen sooner.) Raegan Ceron [Advanced Practice Nurse] - 11/12/17 2:30 pm (The above appointment is with Raegan Ceron CNP, at Primary Care within [facility]. This appointment is to establish you with a primary care provider. Your needs for medication and/or Vivitrol will be assessed and treated as indicated as well. Please arrive 15 minutes early to complete paperwork. Please bring your insurance card, photo ID and list of current medications to your first appointment. The above appointment(s) reflects first availability. You may contact the office regularly to check for cancellations that may allow you to be seen sooner.) Psychiatry Exam - Constitutional Vitals: Temp Pulse Resp BP Pulse Ox 97.4 F L 88 18 119/81 100 10/27/17 09:00 10/27/17 09:00 10/27/17 09:00 10/27/17 09:00 10/24/17 01:45 General appearance: age & developmentally appropriate, well-groomed, well- nourished - Musculoskeletal Gait: normal Station: relaxed Strength & Tone: normal for patient - Psychiatric Patient Orientation: Yes Person, Yes Time, Yes Place Level of alertness: Alert Behavior: calm, cooperative Psychomotor activity: Normal Eye Contact: Maintains Eye Contact Mood Description: Euthymic/stable Affect description: congruent with mood, full range Speech Volume: Normal Speech pattern: normal rate, normal rhythm, normal tone, fluent, spontaneous Language & Vocabulary: consistent with education Thought Process: Logical Thought Content: No Suicidal ideation, No Homicidal ideation, No Overt delusions , Yes Paranoid delusion Perceptual Disturbances: No Auditory hallucinations, No Visual hallucinations Attention Span Ability: Capable of Focused Attention Memory Description: Grossly Intact Patient Reliability: Reliable Historian Fund of knowledge: Yes abstraction ability, Yes aware of current events Intelligence Estimate: Average Judgment: Limited Insight: Partial
[2017-10-27] MEDS: hydrOXYzine pamoate 25 MG CAPSULE PO PRN (18:23)
--- NOTE | 2017-10-27 18:54 | Internal Med Progress Note ---
Date of Encounter: 10/27/17 Time of Encounter: 11:00 - Assessment and plan (1) Rash Current Visit: Yes Status: Acute Assessment and plan: Patient with erythematous scaly plaques on back and bilateral forearms which has been present for at least 2 weeks Patient has already been on a trial of oral prednisone as an outpatient with no relief in symptoms Continue oral and topical prednisone Recommendations for a dermatology inpatient consult (2) Acute psychosis Current Visit: Yes Status: Acute Assessment and plan: Management per psychiatry team - Time Spent With Patient Total time spent is greater than 50% in coordination of care (as documented) at patient's floor/unit and/or counseling patient: - Subjective Interval history: Patient reports of itchy rash on back and bilateral arms without any improvement - Constitutional Vitals: Temp Pulse Resp BP Pulse Ox 97.4 F L 88 18 119/81 100 10/27/17 09:00 10/27/17 09:00 10/27/17 09:00 10/27/17 09:00 10/24/17 01:45 General appearance: Present: A&O X 3, pleasant - Respiratory Respiratory exam: Present: CTAB. Absent: accessory muscle use, rales, rhonchi, wheezes - Cardiovascular Cardiovascular exam: Present: RRR, +S1, +S2. Absent: diastolic murmur, gallop, rubs, systolic murmur - Expanded Skin Exam Distribution of rash: Present: abdomen, back, LUE, RUE (Patient with erythematous scaly plaques on back and bilateral forearms) Internal Medicine: Result - Labs CBC & Chem 7: 10/24/17 01:25 10/24/17 01:25 Labs: Liver Function 10/27/17 Range/Units 08:09 Total Bilirubin 0.4 (0.3-1.0) mg/dL Direct Bilirubin 0.1 (0.0-0.2) mg/dL AST 21 (13-39) Units/L ALT 33 (7-52) Units/L Alkaline Phosphatase 54 (34-104) Units/L Albumin 4.1 (3.5-5.7) g/dL - VTE Reasons for not Prescribing Prophylaxis: Treatment not Indicated - Low risk for VTE Consult Discharge Plan - Plan Referrals: Joanna Carmichael [facility] [place] - 11/10/17 1:00 pm (The above appointment is with Alessandra Rdz. When you come to your first appointment, you will be completing paperwork, meeting with a counselor, and developing a treatment plan. You will receive follow- up appointments for on-going services, which could include community support, mental health and substance abuse counseling, groups/partial hospitalization programming and medication assisted treatment. Please note, you will receive a new patient packet in the mail. Please complete that to the best of your ability and bring it with you to your first appointment. You will also need to bring the following to your first appointment as well: 1) proof of household income (two consecutive pay stubs, social security award letter, bank statement, statement letter from [facility], child support statement, IRS 1040 or W2 form, or a statement from the person who financially supports you stating they help provide for your basic needs), 2 ) proof of residency (drivers license, a piece of mail showing your address, a statement from person you live with verifying you live at their address), 3) your social security card, 4) photo ID, 5) your insurance card (if you have commercial insurance you must call to obtain a prior authorization number before you arrive to your first appointment) and 6) if you do not have insurance but have applied for Medicaid, please bring verification you have applied. The above appointment(s) reflects first availability. You may contact the office regularly to check for cancellations that may allow you to be seen sooner.) Raegan Ceron [Advanced Practice Nurse] - 11/12/17 2:30 pm (The above appointment is with Raegan Ceron CNP, at Primary Care within [facility]. This appointment is to establish you with a primary care provider. Your needs for medication and/or Vivitrol will be assessed and treated as indicated as well. Please arrive 15 minutes early to complete paperwork. Please bring your insurance card, photo ID and list of current medications to your first appointment. The above appointment(s) reflects first availability. You may contact the office regularly to check for cancellations that may allow you to be seen sooner.)
[2017-10-27] MEDS: Ibuprofen 400 MG TABLET PO PRN (20:52)
[2017-10-28] MEDS: chlorproMAZINE 25 MG TABLET PO SCH (08:26)
[2017-10-28] MEDS: Nicotine 21 MG PATCH.TD24 TD SCH (08:26)
[2017-10-28] MEDS: predniSONE 20 MG TABLET PO SCH (08:27)
[2017-10-28] MEDS ORDERED: Fluconazole 100 MG TABLET PO ONE (08:28)
--- NOTE | 2017-10-28 08:39 | Internal Med Progress Note ---
Date of Encounter: 10/28/17 Time of Encounter: 08:36 - Assessment and plan (1) Rash Current Visit: Yes Status: Acute Assessment and plan: Patient with erythematous scaly plaques on back and bilateral forearms which has been present for at least 2 weeks Patient has already been on a trial of oral prednisone as an outpatient with no relief in symptoms steroid cream makes it spreading will stop prednisone and cortisone cream, change to fluconazole 300 mg weekly times 2 doses, ketoconazole cream BID for presumed tinia versicolor - Time Spent With Patient Total time spent is greater than 50% in coordination of care (as documented) at patient's floor/unit and/or counseling patient: 25 - 35 minutes - Subjective Interval history: Rashes looks like spreading from back to the chest, more severe in bilateral arms. I am going to stop his steroids. and change to fluconazole and ketoconozole cream - Constitutional Vitals: Temp Pulse Resp BP Pulse Ox 97.8 F 64 18 119/75 100 10/27/17 21:00 10/27/17 21:00 10/27/17 21:00 10/27/17 21:00 10/24/17 01:45 General appearance: Present: A&O X 3, pleasant Exam: CONSTITUTIONAL: patient appears as an age appropriate male in no acute distress. EYES Clear sclerae, bilateral pupils are equal, reactive to light. EMOI. RESPIRATORY: No accessory muscle use, bilateral clear to auscultation, no wheezing, no crackles/rales. CARDIOVASCULAR: Regular heart rate, normal S1 and S2, no murmurs GASTROINTESTINAL: bowel sounds present, soft, no tenderness. MUSCULOSKELETAL: Joints in normal range of motion, no clubbing, no edema, no cyanosis. Bilateral peripheral pulses 2+. NEUROLOGIC: CN II to XII are grossly intact, no focal neurological deficit. Generalized skin rash to the whole back, spreading into the chest and the bilateral upper extremity Internal Medicine: Result - Labs CBC & Chem 7: 10/24/17 01:25 10/24/17 01:25 Labs: Liver Function 10/27/17 Range/Units 08:09 Total Bilirubin 0.4 (0.3-1.0) mg/dL Direct Bilirubin 0.1 (0.0-0.2) mg/dL AST 21 (13-39) Units/L ALT 33 (7-52) Units/L Alkaline Phosphatase 54 (34-104) Units/L Albumin 4.1 (3.5-5.7) g/dL - VTE Reasons for not Prescribing Prophylaxis: Treatment not Indicated - Low risk for VTE Consult Discharge Plan - Plan Referrals: [facility] [Outside] - 11/10/17 1:00 pm (The above appointment is with Alessandra Rdz. When you come to your first appointment, you will be completing paperwork, meeting with a counselor, and developing a treatment plan. You will receive follow- up appointments for on-going services, which could include community support, mental health and substance abuse counseling, groups/partial hospitalization programming and medication assisted treatment. Please note, you will receive a new patient packet in the mail. Please complete that to the best of your ability and bring it with you to your first appointment. You will also need to bring the following to your first appointment as well: 1) proof of household income (two consecutive pay stubs, social security award letter, bank statement, statement letter from [facility], child support statement, IRS 1040 or W2 form, or a statement from the person who financially supports you stating they help provide for your basic needs), 2 ) proof of residency (drivers license, a piece of mail showing your address, a statement from person you live with verifying you live at their address), 3) your social security card, 4) photo ID, 5) your insurance card (if you have commercial insurance you must call to obtain a prior authorization number before you arrive to your first appointment) and 6) if you do not have insurance but have applied for Medicaid, please bring verification you have applied. The above appointment(s) reflects first availability. You may contact the office regularly to check for cancellations that may allow you to be seen sooner.) Raegan Ceron [Advanced Practice Nurse] - 11/12/17 2:30 pm (The above appointment is with Raegan Ceron CNP, at Primary Care within [facility]. This appointment is to establish you with a primary care provider. Your needs for medication and/or Vivitrol will be assessed and treated as indicated as well. Please arrive 15 minutes early to complete paperwork. Please bring your insurance card, photo ID and list of current medications to your first appointment. The above appointment(s) reflects first availability. You may contact the office regularly to check for cancellations that may allow you to be seen sooner.)
[2017-10-28] MEDS ORDERED: Ketoconazole 2% CRM 15 GM TUBE TP SCH (09:00)
[2017-10-28] MEDS ORDERED: Fluconazole 100 MG TABLET PO SCH (09:00)
[2017-10-28 09:22] VITALS: BP 113/70
--- NOTE | 2017-10-28 10:04 | Discharge Summary ---
Date of Encounter: 10/28/17 Time of Encounter: 09:45 Diagnosis - Discharge Diagnosis (1) Bipolar affective disorder Status: Acute Comments: patient has improved , he is not manic, no depressive s/s and no psychosis denies si/hi not danger to self/others at present. Qualifiers: Active/Remission status: currently active Current bipolar episode type: manic Current episode severity: severe Psychotic features: with psychotic features Qualified Code(s): F31.2 - Bipolar disorder, current episode manic severe with psychotic features (2) Homicidal ideation Status: Resolved (3) Suicidal ideation Status: Resolved (4) Amphetamine abuse Status: Acute Comments: patient declined as he just relapsed for 2 days as had no medicine. will get help if needed. (5) Cannabis abuse Status: Chronic Medications - Discharge Medications Prescriptions: Buspirone HCl [Buspar] 10 mg PO TID #90 tablet chlorproMAZINE [Thorazine] 50 mg PO DAILY #60 tablet chlorproMAZINE [Thorazine] 100 mg PO HS #30 tablet Ketoconazole 2% CRM [Nizoral Cream] 1 appl TP BID 10 Days #1 tube Sertraline [Zoloft] 50 mg PO DAILY #30 tablet Buspirone HCl [Buspar] 10 mg PO TID #90 tablet 10/28/17 [Rx] Ketoconazole 2% CRM [Nizoral Cream] 1 appl TP BID 10 Days #1 tube 10/28/17 [Rx] Sertraline [Zoloft] 50 mg PO DAILY #30 tablet 10/28/17 [Rx] chlorproMAZINE [Thorazine] 50 mg PO DAILY #60 tablet 10/28/17 [Rx] chlorproMAZINE [Thorazine] 100 mg PO HS #30 tablet 10/28/17 [Rx] 3 Allergy/AdvReac Type Severity Reaction Status Date / Time No Known Allergies Allergy Verified 10/21/17 10:19 Results Procedures and tests throughout hospitalization: Completed Lab Orders Category Date Time Status LFTs [Hepatic Panel] AM 0400 Lab 10/27/17 08:09 Completed Provider Date of admission: 10/24/17 04:05 Primary care physician: PCP NONE Consults: 10/26/17 11:29 Consult to Hospitalist [CONS] Stat Consulting Provider: Hospitalist [place] Reason for Consult: Rash Call Completed: Yes Psychiatry Exam - Constitutional Vitals: Temp Pulse Resp BP Pulse Ox 97.8 F 71 16 113/70 100 10/28/17 09:00 10/28/17 09:00 10/28/17 09:00 10/28/17 09:00 10/24/17 01:45 General appearance: age & developmentally appropriate, well-groomed, well- nourished - Musculoskeletal Gait: normal Station: relaxed Strength & Tone: normal for patient - Psychiatric Patient Orientation: Yes Person, Yes Time, Yes Place Level of alertness: Alert Behavior: calm, cooperative, anxious Psychomotor activity: Normal Eye Contact: Maintains Eye Contact Mood Description: Anxious Affect description: congruent with mood, full range Speech Volume: Normal Speech pattern: normal rate, normal rhythm, normal tone, fluent, spontaneous Language & Vocabulary: consistent with education Thought Process: Linear, Goal Oriented Thought Content: No Suicidal ideation, No Homicidal ideation, No Overt delusions Perceptual Disturbances: No Auditory hallucinations, No Visual hallucinations Attention Span Ability: Capable of Focused Attention Memory Description: Grossly Intact Patient Reliability: Reliable Historian Fund of knowledge: Yes abstraction ability, Yes aware of current events Intelligence Estimate: Average Judgment: Fair Insight: Partial Hospital Course Hospital course: Mr. Padilla is a 37 year old male was admitted from ED for substance use , suicidal and homicidal ideations, he was irritble , angry and loud. Patient is known to , he was here in [facility] and with same presentation, he did not follow and ran out of medications as per him was working and doing well after 3 weeks of no medications he started not sleeping well , getting angry and relapsed , then came to ED , he checked himself in. He developed rash 1-2 weeks before admission and medicine consult was called and dx with contact dermatitis he was given prednisone oral and cream and it made it worse so it was changed to ketocanazole cream which has helped him Appreciate medical consult. no other medical problems. During the course of hospitalization , patients medications were restarted as he did well on them , timigs changed as forgets afternoon dose , zoloft was increased , he showed improvement and denied side effects. [id number] He was compliant with unit milieu and treatment plan. he was given counselling, education on compliance. He upon discharge is not suicidal/homicidal or psychotic, some anxiety . Has support and has room mates, brother is very close and will monitor his compliance and bubble pack medication given. Time spent discussing smoking cessation with patient: 3 to 10 minutes Does patient wish to continue nicotine replacement upon disc: No (patient already cutting down , using ecig./) - Time Spent with Patient Total time spent providing and/or coordinating discharge services: Greater than 30 minutes Assessment and Plan - Patient/Caregiver Discharge Instructions Activity: resume usual activities as tolerated Diet: regular diet - Follow up Plan Follow up with: [facility] [Outside] - 11/10/17 1:00 pm (The above appointment is with Alessandra Rdz. When you come to your first appointment, you will be completing paperwork, meeting with a counselor, and developing a treatment plan. You will receive follow- up appointments for on-going services, which could include community support, mental health and substance abuse counseling, groups/partial hospitalization programming and medication assisted treatment. Please note, you will receive a new patient packet in the mail. Please complete that to the best of your ability and bring it with you to your first appointment. You will also need to bring the following to your first appointment as well: 1) proof of household income (two consecutive pay stubs, social security award letter, bank statement, statement letter from [facility], child support statement, IRS 1040 or W2 form, or a statement from the person who financially supports you stating they help provide for your basic needs), 2 ) proof of residency (drivers license, a piece of mail showing your address, a statement from person you live with verifying you live at their address), 3) your social security card, 4) photo ID, 5) your insurance card (if you have commercial insurance you must call to obtain a prior authorization number before you arrive to your first appointment) and 6) if you do not have insurance but have applied for Medicaid, please bring verification you have applied. The above appointment(s) reflects first availability. You may contact the office regularly to check for cancellations that may allow you to be seen sooner.) Raegan Ceron [Advanced Practice Nurse] - 11/12/17 2:30 pm (The above appointment is with Raegan Ceron CNP, at [facility]. This appointment is to establish you with a primary care provider. Your needs for medication and/or Vivitrol will be assessed and treated as indicated as well. Please arrive 15 minutes early to complete paperwork. Please bring your insurance card, photo ID and list of current medications to your first appointment. The above appointment(s) reflects first availability. You may contact the office regularly to check for cancellations that may allow you to be seen sooner.) Overall status at discharge: Stable Disposition: Home, Self-Care Quality - Multiple Antipsychotics Patient discharged on 2 or more antipsychotic medications: No Procedures - Procedures Procedures: Medication Management, Crisis Stabilization, Supportive Therapy, Group Therapy, Psychoeducational Therapy
== END 2017-10-28 10:40 | disposition home or self-care (01) | DRG 753 ==
LOC: EMEROO 01:08 → SUATTDRO 04:05 → 1ANU 04:05
PROVIDERS: ADMIT Psychiatry & Neurology Psychiatry; ATTEND Hospitalist

== ENCOUNTER 2020-02-08 08:19 | Observation (INO) ==
[2020-02-08 09:13] LABS: Hematocrit 50.4 % (37.5-50.1); Hemoglobin 16.8 g/dL (12.9-16.9); Mean Corpuscular HGB Conc 33.3 g/dL (31.6-35.5); Mean Corpuscular Hemoglobin 29.7 pg (28.0-33.3); Mean Corpuscular Volume 89.2 fL (83.0-100.0); Red Blood Count 5.65 M/mcL (4.19-5.50); White Blood Count 7.1 K/mcL (4.3-11.1)
[2020-02-08 09:14] LABS: Basophils % 0.4 %; Eosinophils # 0.5 K/mcL (0.0-0.6); Eosinophils % 6.7 %; Immature Granulocytes % 0.3 % (0-4); Lymphocytes # 1.1 K/mcL (0.6-4.6); Lymphocytes % 15.4 %; Mean Platelet Volume 8.8 fL (9.4-12.4); Monocytes # 0.5 K/mcL (0.0-1.3); Monocytes % 7.6 %; Platelet Count 160 K/mcL (140-400); Segmented Neutrophils % 69.6 %
[2020-02-08 09:32] LABS: Acetaminophen < 10 mcg/mL (10-20); Alanine Aminotransferase 113 Units/L (7-52); Albumin 4.8 g/dL (3.5-5.7); Albumin/Globulin Ratio 1.5 (1.1-2.2); Alkaline Phosphatase 81 Units/L (34-104); Aspartate Amino Transferase 59 Units/L (13-39); BUN/Creatinine Ratio 9 (6-26); Blood Urea Nitrogen 12 mg/dL (6-20); Calcium 9.5 mg/dL (8.6-10.3); Carbon Dioxide 26 mEq/L (23-29); Chloride 101 mEq/L (98-107); Ethanol < 10 mg/dL (Less than 10); Globulin 3.1 g/dL (2.4-3.5); Glucose 106 mg/dL (70-105); Osmolality,Calculated 284 (280-300); Potassium 3.4 mEq/L (3.5-5.1); Salicylate < 2.5 mg/dL (15.0-30.0); Sodium 137 mEq/L (136-145); Total Protein 7.9 g/dL (6.4-8.9); eGFR For African Americans > 60 (> 60); eGFR For Non-African Americans 60 (> 60)
[2020-02-08] MEDS ORDERED: Naloxone 0.4 MG/ML INJ IVP PRN (11:20)
[2020-02-08] MEDS: 0.9 % Sodium Chloride 1,000 ML IVC SCH (12:43)
[2020-02-08 12:44] LABS: Amphetamine Screen,Urine Positive ng/mL (Cutoff=1000); Barbiturate Screen,Urine Negative ng/mL (Cutoff=200); Benzodiazepines Screen,Urine Negative ng/mL (Cutoff=200); Cannabinoid Screen,Urine Positive ng/mL (Cutoff = 50); Cocaine Screen,Urine Positive ng/mL (Cutoff= 300); Opiate Screen,Urine Negative ng/mL (Cutoff=300); Phencyclidine Screen,Urine Negative ng/mL (Cutoff=25)
[2020-02-08] MEDS ORDERED: Perflutren Lipid Microsphere 1.3 ML in 0.9 % Sodium Chloride 8.7 ML IVP PRN (13:03)
[2020-02-08] MEDS: Nicotine 21 MG PATCH.TD24 TD SCH (18:00)
[2020-02-09] MEDS: 0.9 % Sodium Chloride 1,000 ML IVC SCH (05:27)
[2020-02-09 05:38] LABS: Eosinophils # 0.6 K/mcL (0.0-0.6); Eosinophils % 13.3 %; Hematocrit 45.9 % (37.5-50.1); Hemoglobin 16.3 g/dL (12.9-16.9); Immature Granulocytes % 0.2 % (0-4); Lymphocytes # 1.6 K/mcL (0.6-4.6); Lymphocytes % 37.1 %; Mean Corpuscular HGB Conc 35.5 g/dL (31.6-35.5); Mean Corpuscular Hemoglobin 31.8 pg (28.0-33.3); Mean Corpuscular Volume 89.5 fL (83.0-100.0); Mean Platelet Volume 9.2 fL (9.4-12.4); Monocytes # 0.5 K/mcL (0.0-1.3); Monocytes % 10.7 %; Neutrophils # 1.6 K/mcL (1.6-8.9); Platelet Count 156 K/mcL (140-400); Red Blood Count 5.13 M/mcL (4.19-5.50); Red Cell Distribution Width 12.1 % (11.5-14.5); Segmented Neutrophils % 37.7 %; White Blood Count 4.2 K/mcL (4.3-11.1)
[2020-02-09 05:56] LABS: BUN/Creatinine Ratio 16 (6-26); Blood Urea Nitrogen 17 mg/dL (6-20); Calcium 8.9 mg/dL (8.6-10.3); Carbon Dioxide 27 mEq/L (23-29); Chloride 105 mEq/L (98-107); Glucose 98 mg/dL (70-105); Magnesium 1.9 mg/dL (1.6-2.6); Osmolality,Calculated 284 (280-300); Phosphorous 3.2 mg/dL (2.7-4.5); Potassium 4.1 mEq/L (3.5-5.1); Sodium 136 mEq/L (136-145); eGFR For African Americans > 60 (> 60); eGFR For Non-African Americans > 60 (> 60)
[2020-02-09 07:18] VITALS: BP 108/69
[2020-02-09] MEDS: Nicotine 21 MG PATCH.TD24 TD SCH (07:41)
== END 2020-02-09 11:25 | disposition left against medical advice (07) ==
LOC: 3BNU 08:19 → EMEROOARM 08:19 → SUATTDRO 12:16 → 3BNU 12:48
PROVIDERS: ADMIT Internal Medicine; ATTEND Internal Medicine

== ENCOUNTER 2020-04-29 06:53 | Observation (INO) ==
[2020-04-29] MEDS ORDERED: Naloxone 0.4 MG/ML INJ IVP PRN (07:02)
[2020-04-29] MEDS ORDERED: 0.9 % Sodium Chloride 1,000 ML IVC ONE (07:04)
[2020-04-29] MEDS ORDERED: Naloxone 0.4 MG/ML INJ ONE (07:08)
[2020-04-29] MEDS ORDERED: Naloxone 0.4 MG/ML INJ IVP ONE (07:11)
[2020-04-29 07:37] LABS: Basophils # 0.1 K/mcL (0.0-0.2); Basophils % 0.8 %; Eosinophils # 1.1 K/mcL (0.0-0.6); Eosinophils % 8.4 %; Hematocrit 42.9 % (37.5-50.1); Hemoglobin 14.8 g/dL (12.9-16.9); Immature Granulocytes % 2.1 % (0-4); Lymphocytes # 4.1 K/mcL (0.6-4.6); Lymphocytes % 30.9 %; Mean Corpuscular HGB Conc 34.5 g/dL (31.6-35.5); Mean Corpuscular Hemoglobin 30.3 pg (28.0-33.3); Mean Corpuscular Volume 87.7 fL (83.0-100.0); Mean Platelet Volume 8.9 fL (9.4-12.4); Monocytes # 0.7 K/mcL (0.0-1.3); Monocytes % 5.4 %; Neutrophils # 6.9 K/mcL (1.6-8.9); Platelet Count 276 K/mcL (140-400); Red Blood Count 4.89 M/mcL (4.19-5.50); Red Cell Distribution Width 12.6 % (11.5-14.5); Segmented Neutrophils % 52.4 %; White Blood Count 13.2 K/mcL (4.3-11.1)
[2020-04-29 07:54] LABS: Acetaminophen < 10 mcg/mL (10-20); Alanine Aminotransferase 69 Units/L (7-52); Albumin 4.3 g/dL (3.5-5.7); Albumin/Globulin Ratio 1.5 (1.1-2.2); Alkaline Phosphatase 61 Units/L (34-104); Aspartate Amino Transferase 60 Units/L (13-39); BUN/Creatinine Ratio 16 (6-26); Bilirubin,Direct 0.1 mg/dL (0.0-0.2); Bilirubin,Indirect 0.2 mg/dL (0.0-1.0); Bilirubin,Total 0.3 mg/dL (0.3-1.0); Blood Urea Nitrogen 21 mg/dL (6-20); Calcium 9.1 mg/dL (8.6-10.3); Carbon Dioxide 18 mEq/L (23-29); Chloride 98 mEq/L (98-107); Ethanol < 10 mg/dL (Less than 10); Globulin 2.8 g/dL (2.4-3.5); Glucose 99 mg/dL (70-105); Lipase 38 Units/L (11-82); Osmolality,Calculated 285 (280-300); Potassium 3.6 mEq/L (3.5-5.1); Salicylate < 2.5 mg/dL (15.0-30.0); Sodium 136 mEq/L (136-145); Total Protein 7.1 g/dL (6.4-8.9); Troponin I < 0.03 ng/mL (< 0.04); eGFR For African Americans > 60 (> 60); eGFR For Non-African Americans 59 (> 60)
[2020-04-29 09:16] LABS: Bilirubin,Urine Negative (Negative); Blood,Urine Small (Negative); Clarity,Urine Clear (Clear); Color,Urine Light-Yellow (Yellow); Glucose,Urine (UA) Normal (Normal); Ketones,Urine Negative (Negative); Leukocyte Esterase,Urine Negative (Negative); Nitrite,Urine Negative (Negative); Protein,Urine 30 mg/dL (Neg-Trace); RBC,Urine 0-3 per hpf (0-3); Specific Gravity,Urine 1.018 (1.010-1.025); Sperm,Urine Present (None Seen); Urobilinogen,Urine Normal (Normal); WBC,Urine 0-3 per hpf (0-3)
[2020-04-29 09:25] LABS: Amphetamine Screen,Urine Positive ng/mL (Cutoff=1000); Barbiturate Screen,Urine Negative ng/mL (Cutoff=200); Benzodiazepines Screen,Urine Negative ng/mL (Cutoff=200); Cannabinoid Screen,Urine Negative ng/mL (Cutoff = 50); Cocaine Screen,Urine Negative ng/mL (Cutoff= 300); Opiate Screen,Urine Negative ng/mL (Cutoff=300); Phencyclidine Screen,Urine Negative ng/mL (Cutoff=25)
[2020-04-29 09:32] LABS: VBG HCO3 29 mEq/L (21-27); VBG PCO2 63 mmHg (41-51); VBG PH 7.27 pH Units (7.32-7.42); VBG PO2 66 mmHg (25-50)
[2020-04-29] MEDS ORDERED: 0.9 % Sodium Chloride 1,000 ML IV ONE (09:43)
[2020-04-29] MEDS ORDERED: 0.9 % Sodium Chloride 1,000 ML ONE (09:45)
[2020-04-29] MEDS ORDERED: SODIUM CHLORIDE 0.9% IV ONE (09:46)
[2020-04-29] MEDS ORDERED: FOMEPIZOLE IV ONE (09:46)
[2020-04-29 09:54] LABS: Creatine Kinase 438 Units/L (30-223)
[2020-04-29] MEDS ORDERED: Acetaminophen 325 MG TABLET PO PRN (12:12)
[2020-04-29] MEDS ORDERED: Ondansetron 4 MG/2 ML VIAL IVP PRN (12:12)
[2020-04-29] MEDS ORDERED: 0.9 % Sodium Chloride 1,000 ML IVC SCH (12:15)
[2020-04-29 15:19] VITALS: BP 113/62
[2020-04-29 15:32] LABS: VBG HCO3 28 mEq/L (21-27); VBG PCO2 56 mmHg (41-51); VBG PH 7.31 pH Units (7.32-7.42); VBG PO2 45 mmHg (25-50)
== END 2020-04-29 16:54 | disposition home or self-care (01) ==
LOC: 3BNU 06:53 → EMEROOARM 06:53 → 3BNU 12:12
PROVIDERS: ADMIT Internal Medicine; ATTEND Internal Medicine